=== PATIENT | male | born 1985 | race Caucasian/White ===

== ENCOUNTER 2021-12-07 10:31 | Day surgery (SDC) | payer OTHER ==
[~2021-12-07] VITALS: Ht 190.5 cm; Wt 100.9 kg
[2021-12-07 12:09] LABS: BASO # 0.1 10^3/uL (0.0-0.2); BASO % 0.6 % (0.0-1.0); EOS # 0.2 10^3/uL (0.0-0.5); EOS % 1.9 % (0.0-3.0); HEMOGLOBIN 15.4 g/dl (13.5-17.5); LYMPH # 1.7 10^3/uL (1.5-5.0); LYMPH % 19.9 % (24.0-44.0); MEAN CORPUSCULAR HEMOGLOBIN 27.9 pg (27.0-33.0); MEAN CORPUSCULAR HGB CONC 32.8 g/dl (32.0-36.5); MEAN CORPUSCULAR VOLUME 85.3 fl (80.0-96.0); MONO # 0.9 10^3/uL (0.0-0.8); MONO % 9.9 % (2.0-8.0); NEUTROPHILS # 5.8 10^3/uL (1.5-8.5); NEUTROPHILS % 67.5 % (36.0-66.0); PLATELET COUNT, AUTOMATED 142 10^3/uL (150-450); RED BLOOD COUNT 5.51 10^6/uL (4.30-6.10); WHITE BLOOD COUNT 8.6 10^3/uL (4.0-10.0)
[2021-12-07 12:36] LABS: ALBUMIN 4.6 GM/DL (3.2-5.2); BILIRUBIN,DIRECT 0.2 MG/DL (0.0-0.2); BILIRUBIN,TOTAL 0.9 MG/DL (0.2-1.0); TOTAL PROTEIN 8.1 GM/DL (6.4-8.2)
[2021-12-07] MEDS ORDERED: ISOVUE-370 76% 100ML VIAL As Ordered ONE (13:47)
[2021-12-07] MEDS ORDERED: ONDANSETRON 4MG/2ML VIAL IV PRN ×2 (14:50→23:15)
[2021-12-07] MEDS: NS 1,000 ML IV SCH (14:50)
[2021-12-07] MEDS ORDERED: NORCO, ANEXSIA 5/325MG TABLET (HYDROcodone/ACETAMINOPHEN) PO PRN (14:50)
[2021-12-07] MEDS ORDERED: KETOROLAC 30 MG/ML 1ML VIAL IV PRN (14:50)
[2021-12-07] MEDS ORDERED: PIPERACILLIN/TAZOBACTAM SOD 3.375 GM in D5W MINI-BAG PLUS 50 ML IV ONE (14:50)
[2021-12-07] MEDS ORDERED: HOME MED LIST COMPLETE! XX SCH (14:55)
[2021-12-07 17:30] VITALS: BP 116/59
[2021-12-07 19:00] VITALS: BP 134/90
[2021-12-07] MEDS: PIPERACILLIN/TAZOBACTAM SOD 3.375 GM in D5W MINI-BAG PLUS 50 ML IV SCH (20:45)
[2021-12-07] MEDS ORDERED: MIDAZOLAM INJ 2MG/2ML VIAL (J2250 PER 1MG) As Ordered ONE (21:36)
[2021-12-07] MEDS ORDERED: ROCURONIUM BROMIDE 50 MG/5 ML VIAL As Ordered ONE ×2 (21:37→22:20)
[2021-12-07] MEDS ORDERED: dexameTHASONE 4 MG/ML 1ML VIAL (J1100 PER 1MG) As Ordered ONE (21:37)
[2021-12-07] MEDS ORDERED: SUGAMMADEX SODIUM 500 MG/5 ML VIAL (BRIDION) As Ordered ONE (21:37)
[2021-12-07] MEDS ORDERED: LIDOCAINE 2% 100MG/5ML SDV (FOR ANES.) As Ordered ONE (21:37)
[2021-12-07] MEDS ORDERED: ONDANSETRON 4MG/2ML VIAL As Ordered ONE (21:37)
[2021-12-07] MEDS ORDERED: propofoL 200 MG/20 ML VIAL As Ordered ONE (21:37)
[2021-12-07] MEDS ORDERED: fentaNYL 100 MCG/2 ML INJECTION As Ordered ONE ×2 (21:37→22:38)
[2021-12-07] MEDS ORDERED: LIDOCAINE W/EPINEPHRINE 1% 20ML VIAL As Ordered ONE (21:40)
[2021-12-07] MEDS ORDERED: BUPIVACAINE HCL 0.25% 30ML VIAL As Ordered ONE (21:40)
[2021-12-07] MEDS ORDERED: ACETAMINOPHEN 1000MG 100ML IV BTL (OFIRMEV) (J0131 PER 10MG) As Ordered ONE (22:17)
[2021-12-07] MEDS ORDERED: NALOXONE INJ 0.4MG/1ML VIAL (J2310 PER 1MG) As Ordered ONE (23:01)
[2021-12-07] MEDS: MEPERIDINE INJ 25 MG/ML VIAL (J2175) IV PRN ×2 (23:10→23:15)
[2021-12-07] MEDS ORDERED: MEPERIDINE INJ 25 MG/ML VIAL (J2175) As Ordered ONE (23:11)
[2021-12-07] MEDS: fentaNYL 100 MCG/2 ML INJECTION IV PRN ×4 (23:15→23:30)
[2021-12-07] MEDS ORDERED: LR 1,000 ML IV SCH (23:15)
[2021-12-07] MEDS ORDERED: oxyCODONE 5MG TAB PO PRN (23:15)
[2021-12-08] VITALS (7 sets, daily range): BP systolic 107–122; BP diastolic 55–72
[2021-12-08] MEDS: NS 1,000 ML IV SCH ×2 (01:00→09:34)
[2021-12-08] MEDS: PIPERACILLIN/TAZOBACTAM SOD 3.375 GM in D5W MINI-BAG PLUS 50 ML IV SCH ×2 (03:06→09:35)
[2021-12-08 06:32] LABS: HEMATOCRIT 41.3 % (42.0-52.0); HEMOGLOBIN 13.9 g/dl (13.5-17.5); MEAN CORPUSCULAR HEMOGLOBIN 28.2 pg (27.0-33.0); MEAN CORPUSCULAR HGB CONC 33.7 g/dl (32.0-36.5); MEAN CORPUSCULAR VOLUME 83.8 fl (80.0-96.0); PLATELET COUNT, AUTOMATED 137 10^3/uL (150-450); RED BLOOD COUNT 4.93 10^6/uL (4.30-6.10); WHITE BLOOD COUNT 8.6 10^3/uL (4.0-10.0)
== END 2021-12-08 11:19 | disposition home or self-care (01) ==
LOC: M ED 10:31 → M SDC 14:47 → ENRESERV 16:18 → M MS4PR 17:15 → M SDC 12-08 11:19
PROVIDERS: ATTEND Surgery
DX: K35.80 Unspecified acute appendicitis (principal)
CPT/HCPCS: 36415; 44970; 74177; 80047; 80076; 81001; 83690; 85025; 85027; 87426; 88304; 96374; 99284; J0131; J1100; J1885; J2175; J2250; J2310; J2405; J2543; J3010; Q9967

== ENCOUNTER 2021-12-19 07:50 | Inpatient (IN) | payer OTHER ==
[~2021-12-19] VITALS: Ht 188 cm; Wt 101.5 kg
[2021-12-19] MEDS ORDERED: ACET500P3 PO (08:04)
[2021-12-19] MEDS ORDERED: FAMO40TA3 PO (08:04)
[2021-12-19] MEDS ORDERED: ONDANSETRON 4MG/2ML VIAL IV ONE (09:05)
[2021-12-19] MEDS ORDERED: MORPHINE 4 MG/ML 1ML VIAL/SYRINGE IV ONE ×3 (09:05→12:50)
[2021-12-19 09:36] LABS: BASO % 0.2 % (0.0-1.0); EOS # 0.1 10^3/uL (0.0-0.5); EOS % 0.5 % (0.0-3.0); HEMOGLOBIN 14.2 g/dl (13.5-17.5); LYMPH # 1.5 10^3/uL (1.5-5.0); MEAN CORPUSCULAR HEMOGLOBIN 27.8 pg (27.0-33.0); MEAN CORPUSCULAR VOLUME 84.1 fl (80.0-96.0); MONO # 1.4 10^3/uL (0.0-0.8); MONO % 9.9 % (2.0-8.0); NEUTROPHILS # 10.6 10^3/uL (1.5-8.5); NEUTROPHILS % 77.9 % (36.0-66.0); PLATELET COUNT, AUTOMATED 174 10^3/uL (150-450); RED BLOOD COUNT 5.11 10^6/uL (4.30-6.10); WHITE BLOOD COUNT 13.6 10^3/uL (4.0-10.0)
[2021-12-19 09:57] LABS: ALBUMIN 3.9 GM/DL (3.2-5.2); ALT/SGPT 34 U/L (12-78); BILIRUBIN,DIRECT 0.3 MG/DL (0.0-0.2); BILIRUBIN,TOTAL 1.2 MG/DL (0.2-1.0); BLOOD UREA NITROGEN 11 MG/DL (7-18); CALCIUM LEVEL 9.5 MG/DL (8.5-10.1); CARBON DIOXIDE LEVEL 26 MEQ/L (21-32); CHLORIDE LEVEL 104 MEQ/L (98-107); CREATININE FOR GFR 1.03 MG/DL (0.70-1.30); GLOMERULAR FILTRATION RATE > 60.0 (>60); GLUCOSE, FASTING 86 MG/DL (70-100); LIPASE 59 U/L (73-393); POTASSIUM SERUM 3.9 MEQ/L (3.5-5.1); SODIUM LEVEL 138 MEQ/L (136-145); TOTAL PROTEIN 7.7 GM/DL (6.4-8.2)
[2021-12-19] MEDS ORDERED: ISOVUE-370 76% 100ML VIAL As Ordered ONE (09:58)
[2021-12-19] MEDS ORDERED: metroNIDAZOLE 500 MG in IV 1 EA IV ONE (10:55)
[2021-12-19] MEDS ORDERED: cefTRIAXone SOD 1 GM in D5W MINI-BAG PLUS 50 ML IV ONE (10:55)
[2021-12-19] MEDS ORDERED: FAMO1TAB11 PO (11:42)
[2021-12-19] MEDS ORDERED: HOME MED LIST COMPLETE! XX SCH (11:45)
[2021-12-19] MEDS ORDERED: KETOROLAC 30 MG/ML 1ML VIAL IV SCH (14:00)
[2021-12-19] MEDS ORDERED: MORPHINE 2 MG/ML 1ML VIAL IV PRN (14:00)
[2021-12-19] MEDS ORDERED: MORPHINE 4 MG/ML 1ML VIAL/SYRINGE IV PRN (14:00)
[2021-12-19] MEDS ORDERED: PERCOCET 5MG/325MG TAB PO PRN (14:00)
[2021-12-19 15:35] LABS: BLOOD UREA NITROGEN 11 MG/DL (7-18); CALCIUM LEVEL 9.1 MG/DL (8.5-10.1); CARBON DIOXIDE LEVEL 30 MEQ/L (21-32); CHLORIDE LEVEL 102 MEQ/L (98-107); CREATININE FOR GFR 1.14 MG/DL (0.70-1.30); GLOMERULAR FILTRATION RATE > 60.0 (>60); GLUCOSE, FASTING 90 MG/DL (70-100); POTASSIUM SERUM 4.7 MEQ/L (3.5-5.1); SODIUM LEVEL 138 MEQ/L (136-145)
[2021-12-19 16:05] LABS: RSV AMPLIFICATION NEGATIVE (NEGATIVE)
[2021-12-19] MEDS: NS 1,000 ML IV SCH (16:40)
[2021-12-19 16:41] VITALS: BP 133/75
[2021-12-19] MEDS: PERCOCET 5MG/325MG TAB PO PRN (17:57)
[2021-12-19] MEDS ORDERED: PIPERACILLIN/TAZOBACTAM SOD 3.375 GM in D5W MINI-BAG PLUS 50 ML IV SCH (18:00)
[2021-12-19 20:50] LABS: BLOOD UREA NITROGEN 16 MG/DL (7-18); CARBON DIOXIDE LEVEL 29 MEQ/L (21-32); CHLORIDE LEVEL 103 MEQ/L (98-107); CREATININE FOR GFR 1.21 MG/DL (0.70-1.30); GLOMERULAR FILTRATION RATE > 60.0 (>60); GLUCOSE, FASTING 93 MG/DL (70-100); POTASSIUM SERUM 4.6 MEQ/L (3.5-5.1); SODIUM LEVEL 138 MEQ/L (136-145)
[2021-12-19] MEDS: metroNIDAZOLE 500 MG in IV 1 EA IV SCH (21:17)
[2021-12-19 22:00] VITALS: BP 119/61
[2021-12-19] MEDS: CIPROFLOXACIN 400 MG in IV 1 EA IV SCH (22:43)
[2021-12-19] MEDS: KETOROLAC 30 MG/ML 1ML VIAL IV SCH (22:44)
[2021-12-20] MEDS: PERCOCET 5MG/325MG TAB PO PRN ×2 (00:35→08:44)
[2021-12-20 00:46] LABS: BLOOD UREA NITROGEN 16 MG/DL (7-18); CALCIUM LEVEL 8.7 MG/DL (8.5-10.1); CARBON DIOXIDE LEVEL 28 MEQ/L (21-32); CHLORIDE LEVEL 103 MEQ/L (98-107); GLOMERULAR FILTRATION RATE > 60.0 (>60); GLUCOSE, FASTING 112 MG/DL (70-100); POTASSIUM SERUM 4.2 MEQ/L (3.5-5.1); SODIUM LEVEL 137 MEQ/L (136-145)
[2021-12-20] MEDS: NS 1,000 ML IV SCH ×2 (02:52→13:25)
[2021-12-20] MEDS: KETOROLAC 30 MG/ML 1ML VIAL IV SCH ×4 (05:10→22:54)
[2021-12-20] MEDS: metroNIDAZOLE 500 MG in IV 1 EA IV SCH ×3 (05:11→20:31)
[2021-12-20 06:00] VITALS: BP 125/65
[2021-12-20 06:06] LABS: HEMATOCRIT 40.1 % (42.0-52.0); HEMOGLOBIN 12.8 g/dl (13.5-17.5); MEAN CORPUSCULAR HEMOGLOBIN 27.8 pg (27.0-33.0); MEAN CORPUSCULAR HGB CONC 31.9 g/dl (32.0-36.5); MEAN CORPUSCULAR VOLUME 87.2 fl (80.0-96.0); PLATELET COUNT, AUTOMATED 159 10^3/uL (150-450); WHITE BLOOD COUNT 11.9 10^3/uL (4.0-10.0)
[2021-12-20 06:36] LABS: BLOOD UREA NITROGEN 17 MG/DL (7-18); CALCIUM LEVEL 8.6 MG/DL (8.5-10.1); CARBON DIOXIDE LEVEL 28 MEQ/L (21-32); CHLORIDE LEVEL 104 MEQ/L (98-107); CREATININE FOR GFR 1.06 MG/DL (0.70-1.30); GLOMERULAR FILTRATION RATE > 60.0 (>60); GLUCOSE, FASTING 89 MG/DL (70-100); POTASSIUM SERUM 4.3 MEQ/L (3.5-5.1); SODIUM LEVEL 137 MEQ/L (136-145)
[2021-12-20] MEDS: ONDANSETRON 4MG/2ML VIAL IV PRN ×2 (08:42→17:17)
[2021-12-20] MEDS: CIPROFLOXACIN 400 MG in IV 1 EA IV SCH ×2 (10:29→22:53)
[2021-12-20 14:00] VITALS: BP 102/66
[2021-12-20 14:17] LABS: BLOOD UREA NITROGEN 18 MG/DL (7-18); CALCIUM LEVEL 8.9 MG/DL (8.5-10.1); CARBON DIOXIDE LEVEL 30 MEQ/L (21-32); CHLORIDE LEVEL 106 MEQ/L (98-107); CREATININE FOR GFR 0.98 MG/DL (0.70-1.30); GLOMERULAR FILTRATION RATE > 60.0 (>60); GLUCOSE, FASTING 81 MG/DL (70-100); POTASSIUM SERUM 4.5 MEQ/L (3.5-5.1); SODIUM LEVEL 140 MEQ/L (136-145)
[2021-12-20 20:16] LABS: BLOOD UREA NITROGEN 16 MG/DL (7-18); CALCIUM LEVEL 8.7 MG/DL (8.5-10.1); CARBON DIOXIDE LEVEL 28 MEQ/L (21-32); CHLORIDE LEVEL 108 MEQ/L (98-107); CREATININE FOR GFR 0.94 MG/DL (0.70-1.30); GLOMERULAR FILTRATION RATE > 60.0 (>60); GLUCOSE, FASTING 94 MG/DL (70-100); POTASSIUM SERUM 4.1 MEQ/L (3.5-5.1); SODIUM LEVEL 140 MEQ/L (136-145)
[2021-12-20] MEDS ORDERED: ACETAMINOPHEN TAB 650MG DOSE (2X325MG) PO PRN (22:35)
[2021-12-21] VITALS: BP 124/76
[2021-12-21] MEDS: NS 1,000 ML IV SCH ×4 (00:30→16:16)
[2021-12-21 02:15] LABS: BLOOD UREA NITROGEN 14 MG/DL (7-18); CALCIUM LEVEL 8.9 MG/DL (8.5-10.1); CARBON DIOXIDE LEVEL 23 MEQ/L (21-32); CHLORIDE LEVEL 112 MEQ/L (98-107); CREATININE FOR GFR 0.95 MG/DL (0.70-1.30); GLOMERULAR FILTRATION RATE > 60.0 (>60); GLUCOSE, FASTING 91 MG/DL (70-100); POTASSIUM SERUM 4.1 MEQ/L (3.5-5.1); SODIUM LEVEL 140 MEQ/L (136-145)
[2021-12-21] MEDS: metroNIDAZOLE 500 MG in IV 1 EA IV SCH ×3 (04:34→21:20)
[2021-12-21] MEDS: KETOROLAC 30 MG/ML 1ML VIAL IV SCH ×4 (04:34→23:01)
[2021-12-21 06:00] VITALS: BP 142/86
[2021-12-21 06:13] LABS: HEMATOCRIT 36.6 % (42.0-52.0); HEMOGLOBIN 11.8 g/dl (13.5-17.5); MEAN CORPUSCULAR HEMOGLOBIN 27.5 pg (27.0-33.0); MEAN CORPUSCULAR HGB CONC 32.2 g/dl (32.0-36.5); MEAN CORPUSCULAR VOLUME 85.3 fl (80.0-96.0); PLATELET COUNT, AUTOMATED 160 10^3/uL (150-450); RED BLOOD COUNT 4.29 10^6/uL (4.30-6.10); WHITE BLOOD COUNT 6.2 10^3/uL (4.0-10.0)
[2021-12-21 06:33] LABS: BLOOD UREA NITROGEN 14 MG/DL (7-18); CALCIUM LEVEL 8.4 MG/DL (8.5-10.1); CARBON DIOXIDE LEVEL 28 MEQ/L (21-32); CHLORIDE LEVEL 109 MEQ/L (98-107); CREATININE FOR GFR 0.95 MG/DL (0.70-1.30); GLOMERULAR FILTRATION RATE > 60.0 (>60); GLUCOSE, FASTING 88 MG/DL (70-100); POTASSIUM SERUM 4.1 MEQ/L (3.5-5.1); SODIUM LEVEL 141 MEQ/L (136-145)
[2021-12-21] MEDS: CIPROFLOXACIN 400 MG in IV 1 EA IV SCH ×2 (10:08→23:00)
[2021-12-21 14:00] VITALS: BP 137/78
[2021-12-21 22:00] VITALS: BP 119/67
[2021-12-22] MEDS: NS 1,000 ML IV SCH ×2 (00:30→06:35)
[2021-12-22] MEDS: KETOROLAC 30 MG/ML 1ML VIAL IV SCH ×2 (04:22→10:45)
[2021-12-22] MEDS: metroNIDAZOLE 500 MG in IV 1 EA IV SCH (04:22)
[2021-12-22 06:00] VITALS: BP 143/91
[2021-12-22 06:59] LABS: HEMOGLOBIN 11.5 g/dl (13.5-17.5); MEAN CORPUSCULAR HGB CONC 32.9 g/dl (32.0-36.5); MEAN CORPUSCULAR VOLUME 85.4 fl (80.0-96.0); PLATELET COUNT, AUTOMATED 156 10^3/uL (150-450); WHITE BLOOD COUNT 4.2 10^3/uL (4.0-10.0)
[2021-12-22] MEDS ORDERED: METR375C3 PO (08:44)
[2021-12-22] MEDS ORDERED: CIPR-249 PO (08:44)
[2021-12-22] MEDS: CIPROFLOXACIN 400 MG in IV 1 EA IV SCH (09:28)
== END 2021-12-22 11:28 | disposition home or self-care (01) | DRG 863 ==
LOC: M ED 07:50 → M ED INP 13:57 → M MSPAV 16:33
PROVIDERS: ADMIT Surgery; ATTEND Surgery
DX: T81.41XA Infection following a procedure, superficial incisional surgical site, initial encounter (principal); K21.9 Gastro-esophageal reflux disease without esophagitis; Z90.49 Acquired absence of other specified parts of digestive tract; Z79.899 Other long term (current) drug therapy; Z20.822 Contact with and (suspected) exposure to COVID-19